=== PATIENT | female | born 2005 | race Caucasian/White ===

== ENCOUNTER → 2025-04-19 11:52 | Outpatient (BNVA) | payer MEDICAID, SELFPAY | PROVIDERS: Visit Provider Nurse Practitioner Women's Health | DX: Z34.01 Encounter for supervision of normal first pregnancy, first trimester (principal); N91.2 Amenorrhea, unspecified; R39.9 Unspecified symptoms and signs involving the genitourinary system | CPT/HCPCS: 81000; 81025; 84702; 86850; 86900; 87086 ==

== ENCOUNTER → 2025-04-26 09:55 | Outpatient (BNVA) | payer MEDICAID, SELFPAY | PROVIDERS: Visit Provider Nurse Practitioner Women's Health | DX: Z36.9 Encounter for antenatal screening, unspecified (principal); O20.8 Other hemorrhage in early pregnancy | CPT/HCPCS: 76801 ==

== ENCOUNTER 2025-05-23 11:12 | Emergency (ER) | payer OTHER, MEDICAID, SELFPAY ==
[2025-05-23 11:17] VITALS: BP 122/78; PULSE 57; RESP 18; TEMP 36.7; O2SAT 100; BMI 22.0
--- NOTE | 2025-05-23 11:23 | US_ITS ---
WS: [id number] EARLY OBSTETRICAL ULTRASOUND (<14 WEEKS). HISTORY: trauma, 12 weeks, sent by clinic COMPARISON: 04/26/2025 Single intrauterine gestational sac is identified. Cardiac activity at 161 BPM. Apollo-rump length measures 5.6 cm which corresponds to a gestation of 12w1d. Normal-appearing yolk sac and amnion demonstrated. No subchorionic hemorrhage. No free fluid. Neither ovary identified. US/US OB <= 14 weeks fetus [id number] IMPRESSION: 1. Single intrauterine gestation of 12w1d with an EDC of 12/04/2025. 2. Normal cardiac activity. 3. No complications post trauma.
--- NOTE | 2025-05-23 11:25 | ED_ITS ---
HPI - Abdominal Pain 2 General: Chief Complaint: Abdominal Pain Stated Complaint: [facility], 12 weeks preg, abd trauma Time Seen by Provider: 05/23/25 11:16 History of Present Illness: 19-year-old female who is approximately 12 weeks who presents to the emergency room requesting an ultrasound. She had some trauma about 2 weeks ago. 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 She came here to confirm the wellness of her fetus. Lab had been drawn or at least ordered from clinic looking at the clinic note. She has had no vaginal bleeding. Related Data Home Medications ?Medication ?Instructions ?Recorded ?Confirmed docosahexaenoic acid 200 mg mg PO 05/23/25 05/23/25 capsule ( DHA) Previous Rx's ?Medication ?Instructions ?Recorded valacyclovir 500 mg tablet 500 mg PO DAILY #90 tabs Allergies Allergy/AdvReac Type Severity Reaction Status Date / Time No Known Allergies Allergy Unverified 05/23/25 09:52 Review of Systems 2 Narrative: Constitutional symptoms: Negative except as documented in HPI. Skin symptoms: Negative except as documented in HPI. Eye symptoms: Negative except as documented in HPI. ENMT symptoms: Negative except as documented in HPI. Respiratory symptoms: Negative except as documented in HPI. Cardiovascular symptoms: Negative except as documented in HPI. Gastrointestinal symptoms: Negative except as documented in HPI. Genitourinary symptoms: Negative except as documented in HPI. Musculoskeletal symptoms: Negative except as documented in HPI. Neurologic symptoms: Negative except as documented in HPI. Psychiatric symptoms: Negative except as documented in HPI. Endocrine symptoms: Negative except as documented in HPI. PFSH ED 2 PFSH: Family History Grandmother Hyperlipidemia Hypertension Diabetes Thyroid disease Social History Smoking and tobacco/nicotine status: former use of tobacco/nicotine (stopped in 02/2025) Physical Exam 2 Narrative: EXAM NARRATIVE: General: Alert, no acute distress. Skin: Warm, dry. Head: Normocephalic, atraumatic. Neck: Supple, trachea midline. Eye: Extraocular movements are intact. Ears, nose, mouth and throat: mucosa moist. Cardiovascular: Regular, Normal peripheral perfusion. Respiratory: Lungs are clear to auscultation, respirations are non-labored, breath sounds are equal, Symmetrical chest wall expansion. Gastrointestinal: Soft, Nontender, Non distended Musculoskeletal: Normal ROM, no deformity. Neurological: Alert and oriented, No focal neurological deficit observed. Psychiatric: Cooperative, appropriate mood & affect. Course 2 Vital Signs: Vital signs: Vital Signs Temperature 98.0 F 05/23/25 11:17 Pulse Rate 57 L 05/23/25 11:17 Respiratory Rate 18 05/23/25 11:17 Blood Pressure 122/78 05/23/25 11:17 Pulse Oximetry 100 05/23/25 11:17 Oxygen Delivery Me thod Room Air 05/23/25 11:17 MDM - Abdominal Pain Medical Decision Making Medical decision making: Differential diagnosis including but not limited to and based on the above HPI, review of systems and physical exam: In this patient with recent abdominal trauma and known ultrasound was ordered to rule out any kind of traumatic hemorrhage and to assure the wellbeing of the fetus. Basic lab work and a hCG were ordered as well. Rule out any kidney malfunctions and make sure her quant is appropriate. Orders placed to evaluate differential diagnosis based on the above differential, HPI and physical exam Ultrasound of fetus: Single intrauterine gestation of 12 weeks 1 day with normal cardiac activity and no traumatic complications. This was reviewed and interpreted by myself the emergency room physician. I also reviewed the radiology report. Lab Review: Laboratory results were reviewed and interpreted by myself the emergency room physician. No leukocytosis. No anemia. No renal failure. Quant is appropriate. I reviewed the patient's medical record. Reexamination: Patient remained stable. No increased work of breathing. No altered mental status. No focal motor deficits. Assessment and plan: Trauma during - Discharged home - Discussed plan with patient. Answered any questions. - Evaluation and treatment of this problem were appropriate in the emergency setting. Lab Data 05/23/25 11:56 05/23/25 11:56 Labs/Radiology: Radiology Impressions Ultrasound 05/23/25 11:23 IMPRESSION: 1. Single intrauterine gestation of 12w1d with an EDC of 12/04/2025. 2. Normal cardiac activity. 3. No complications post trauma. Laboratory Results WBC 11.50 10^3/uL (4.5-13.0) 05/23/25 11:56 RBC 3.92 10^6/uL (3.85-5.65) 05/23/25 11:56 Hgb 12.20 g/dL (12.4-14.8) L 05/23/25 11:56 Hct 36.6 % (36-47) 05/23/25 11:56 MCV 93.4 fl (85-98) 05/23/25 11:56 MCH 31.1 pg (27-33) 05/23/25 11:56 MCHC 33.3 g/dL (30-55) 05/23/25 11:56 RDW 13.7 % (12.1-15.1) 05/23/25 11:56 Plt Count 254 10^3/cmm (157-399) 05/23/25 11:56 MPV 10.9 fL (7.4-10.4) H 05/23/25 11:56 Neut % (Auto) 70.5 % 05/23/25 11:56 Lymph % (Auto) 19.6 % 05/23/25 11:56 Crook % (Auto) 9.2 % 05/23/25 11:56 Eos % (Auto) 0.2 % 05/23/25 11:56 Baso % (Auto) 0.2 % 05/23/25 11:56 Neut # (Auto) 8.12 10^3/uL (1.8-8.0) H 05/23/25 11:56 Lymph # (Auto) 2.3 10^3/uL (1.5-6.5) 05/23/25 11:56 Crook # (Auto) 1.1 10^3/uL (0.2-0.9) H 05/23/25 11:56 Eos # (Auto) 0.0 10^3/uL (0.0-0.8) 05/23/25 11:56 Baso # (Auto) 0.0 10^3/uL (0.0-0.1) 05/23/25 11:56 Nucleated RBC % (auto) 0 % 05/23/25 11:56 Nucleated RBCs # 0.0 /100WBC 05/23/25 11:56 Chloride 100 mmol/L (98-107) 05/23/25 11:56 BUN 7 mg/dL (6-20) 05/23/25 11:56 Creatinine 0.5 mg/dL (0.5-0.9) 05/23/25 11:56 Glucose 78 mg/dL (65-115) 05/23/25 11:56 Calcium 9.3 mg/dL (8.5-10.5) 05/23/25 11:56 Total Bilirubin 0.2 mg/dL (0.15-1.2) 05/23/25 11:56 ALT 9 U/L (0-33) 05/23/25 11:56 Alkaline Phosphatase 43 U/L (35-105) 05/23/25 11:56 Total Protein 6.6 g/dL (6.6-8.7) 05/23/25 11:56 Albumin 3.9 g/dL (3.5-5.2) 05/23/25 11:56 Globulin 2.7 g/dL (1.3-4.6) 05/23/25 11:56 Ser , Semi-Qnt 40607.00 mIU/mL 05/23/25 11:56 All radiology interpretation(s) finalized by discharge Discharge Plan Discharge Patient Disposition: Home Clinical Impression: Trauma during Condition: Stable Prescriptions: No Action DHA 200 mg capsule PO valacyclovir 500 mg tablet 500 mg PO BID 3 Days Qty: 6 1RF Rx Instructions: take twice daily for 3 days valacyclovir 500 mg tablet 500 mg PO DAILY Qty: 90 3RF Rx Instructions: take once daily Discharge Orders: Discharge ED (Routine); Ordered 05/23/25 Ordered By: Daysi Damon Discharge Diet: Usual diet Discharge Activity: Increase activity as tolerated Patient Instructions: Trauma During (ED), Opioid Safety, Pain Management, Patient Portal & Tiny Instructions Activity Restrictions/Additional Instructions: Thank you for choosing [facility] for your healthcare needs today. You have been screened and evaluated and felt safe for discharge. Health conditions do change or evolve sometimes and as such it is important that you follow up with your Primary Doctor to be re checked, 3-5 days is a general good time frame for follow up. You are always welcome to return to the ED for re assessment if your symptoms are worsening or you have new concerns Print Language: Panamanian Coding Level of Care Code ED Field Liability Generalist for [facility]
[2025-05-23 12:04] LABS: Hematocrit 36.6 % (36-47); Hemoglobin 12.20 g/dL (12.4-14.8); Mean Corpuscular HGB Conc 33.3 g/dL (30-55); Mean Corpuscular Hemoglobin 31.1 pg (27-33); Mean Corpuscular Volume 93.4 fl (85-98); Nucleated Red Blood Cells % 0 %; Platelet Count 254 10^3/cmm (157-399); Red Blood Count 3.92 10^6/uL (3.85-5.65); White Blood Count 11.50 10^3/uL (4.5-13.0)
[2025-05-23 12:54] LABS: Alanine Aminotransferase 9 U/L (0-33); Albumin Level 3.9 g/dL (3.5-5.2); Alkaline Phosphatase 43 U/L (35-105); Blood Urea Nitrogen 7 mg/dL (6-20); Calcium 9.3 mg/dL (8.5-10.5); Carbon Dioxide 19 mmol/L (22-29); Chloride 100 mmol/L (98-107); Creatinine Clr Calc Pharmacy 183.1705; Globulin 2.7 g/dL (1.3-4.6); Glucose 78 mg/dL (65-115); Osmolality Calculated 275 mOsm/kg (285-295); Sodium 134 mmol/L (136-145); Total Protein 6.6 g/dL (6.6-8.7)
[2025-05-23 12:59] LABS: Anion Gap 19.2 (5-19); Potassium 4.2 mmol/L (3.5-5.1)
[2025-05-23 13:00] LABS: Aspartate Amino Transferase 14 U/L (0-32)
[2025-05-23 13:04] VITALS: BP 118/72; PULSE 60; RESP 16; O2SAT 98
== END 2025-05-23 13:04 | disposition home or self-care (01) ==
PROVIDERS: Emergency Provider Emergency Medicine
DX: O26.891 Other specified pregnancy related conditions, first trimester (principal); Z3A.12 12 weeks gestation of pregnancy; Z87.891 Personal history of nicotine dependence
CPT/HCPCS: 36415; 76801; 80053; 80307; 84315; 84443; 84702; 85025; 86592; 86762; 86803; 87086; 87340; 87491; 87591; 87661; 87806; 99284

== ENCOUNTER → 2025-06-26 09:40 | Outpatient (BNVA) | payer OTHER, MEDICAID, SELFPAY | PROVIDERS: Visit Provider Obstetrics & Gynecology | DX: O26.892 Other specified pregnancy related conditions, second trimester (principal); Z3A.17 17 weeks gestation of pregnancy; Z67.91 Unspecified blood type, Rh negative | CPT/HCPCS: 84315 ==